=== PATIENT | male | born 1955 | race Caucasian/White ===

== ENCOUNTER 2016-09-28 12:31 | Emergency (ER) | payer MEDICARE, MEDICAID ==
[~2016-09-28] VITALS: Ht 188 cm; Wt 86.2 kg
[~2016-09-28 12:31] MED LIST: ALBU8.5H2 INHALATION; CYCL10TA9 PO; MELO-259 PO; OXYC-407 PO; PENI500T PO; SYMINH INHALATION; TAMS0.4C98 PO; TIOT18CA3 IH; TOPI-31 PO
[2016-09-28 12:35] VITALS: BP 151/87; PULSE 88; RESP 18; O2SAT 98
--- NOTE | 2016-09-28 12:53 | ED.REPORT ---
HPI- Male Date of Service Sep 28, 2016 ED Provider: Mikayla Hall MD Pt is a 61 y/o male w/ a hx of COPD presenting to the ED c/o URI-like symptoms onset 3 days ago. He c/o green productive cough, nasal congestion, fatigue, SOB. He denies fever, N/V/D. He states that this happens every year and that he normally receives major relief with a Z-pack. Nursing Notes Stated Complaint: POSS RESPIRATORY INFECTION Chief Complaint: Respiratory Complaints Nursing Notes Reviewed: Yes Allergies: Coded Allergies: No Known Allergies (Verified Allergy, Unknown, 09/28/16) Scheduled Albuterol HFA (Proair HFA) 8.5 Gm Hfa.aer.ad 2 PUFFS INHALATION Q4H Azithromycin (Zithromax (Z-Yo)) 250 Mg Tablet 250 MG PO DAILY Budesonide/Formoterol 160-4.5 mcg Inh (Symbicort 160-4.5 mcg Inh) 120 Puff Inhaler 1 PUFF INHALATION BID Meloxicam (Meloxicam) 7.5 Mg Tablet 7.5 MG PO BID Penicillin V Potassium (Penicillin V Potassium) 500 Mg Tablet 500 MG PO TID Prednisone (PredniSONE) 20 Mg Tablet 20 MG PO DAILY 20mg pills 3 today 2 09/29 and 09/30 1 10/01 and 10/02 12 10/03 and 10/04 Tamsulosin (Flomax) 0.4 Mg Capsule 0.4 MG PO DAILY Tiotropium [place] (Spiriva) 18 Mcg Cap.w.dev 18 MCG IH DAILY Topiramate (Topiramate) 100 Mg Tablet 100 MG PO BID Scheduled PRN Cyclobenzaprine (Cyclobenzaprine) 10 Mg Tablet 10 MG PO TID PRN PRN Spasm Oxycodone HCl/Acetaminophen 5-325 (Endocet 5-325) 1 Each Tablet 1-2 TABLET PO Q4H PRN PRN For Pain General Time Seen by MD: 12:51 Chief Complaint Other (URI-like) Hx Obtained From: Patient Arrived By: Walk-in Onset Occurred: 3 days ago Symptom Duration: Since onset Severity: Current: No pain currently Severity: Maximum: No pain Similar Sx Previous: Yes Past Medical History Past Medical History Anxiety COPD Hx Pneumonia Reports: Thyroid disease Past Surgical History Reports: Inguinal hernia repair Family History noncontributory Smoking History Current Every Day Smoker Social History Alcohol Use: Denies alcohol use Drug Use: THC Other Social History: Local resident Occupation single, no work or school Ambulatory Status Independent Review of Systems Constitutional: Reports: Fatigue, Denies: Chills, Fever GI: Denies: Diarrhea, Nausea, Vomiting Complete sys rev & neg: except as marked. Ears / Nose / Throat: Reports: Nasal congestion Respiratory: Reports: Prod cough, green, Shortness of breath Physical Exam Initial Vital Signs Vital Signs (First) Date Time Temp Pulse Resp B/P Pulse Ox O2 Delivery O2 Flow Rate FiO2 09/28/16 12:35 36.6 88 18 151/87 98 Room Air Initial VS: Reviewed, Vital signs normal Head / Eyes: Atraumatic, Normocephalic, PERRL ENT: Mucous membranes moist, Conjunctiva normal, No scleral icterus Cardiovascular: Regular rate & rhythm, Heart sounds normal, Intact distal pulses Abdomen / GI: Soft Extremities: Vascular intact, Neuro intact, No swelling, No tenderness Skin: Warm, Dry, No cyanosis Neurologic: Alert, Oriented, Nonfocal Psychiatric: Mood/affect normal, Behavior normal, Normal thought content General/Constitutional: Awake, Alert, No acute distress, Cooperative, Not toxic appearing Neck: Atraumatic, Supple, No meningismus, Full range of motion Soft Tissue Neck: Positive: Cervical adenopathy L... (Anterior), Cervical adenopathy R... (Anterior) Respiratory / Chest: Atraumatic, No respiratory distress, No rhonchi, No retractions, No chest tenderness, No chest wall deformity Good air movement Scattered wheezing Re-Eval/Medical Decision Re-Evaluation/Progress : Time of Eval: 13:12 Re-Evaluation/Progress Note: Pt rechecked. Informed pt of plan for treatment. Pt understands and agrees with plan for treatment. F/U and RTER warnings given. All questions addressed. Counseled Regarding: Diagnosis, Need for follow-up, When/why to return to ED Discharge & Departure Impression: Primary Impression: Acute exacerbation of chronic obstructive pulmonary disease Additional Impression: Acute exacerbation of chronic bronchitis Disposition: Home Discharge Condition All VS Reviewed: Yes Condition: Stable Additional Instructions: Thanks for letting us evaluate you today. I'm glad you came in early and don't need to be admitted today. You have the usual exacerbation of both your chronic bronchitis and COPD. You will benefit from a z pac and a brief steroid course. Please continue to use your inhalers as well. If you getting worse, we are here for you. The next time you have these symptoms, if it is early enough in the course, you might consider getting into Dr Sifuentes or an urgent care visit. I hope you get better quickly and avoid the flu!! Your prescriptions have been electronically sent to [facility] for you Referrals: Prasanna Sifuentes MD (PCP) Lulu Attestation Portions of this note were transcribed by Ethan An. I, Dr. Hall personally performed the history, physical exam and medical decision-making; I reviewed and confirmed the accuracy of the information in the transcribed note. Signed by Lulu Steen, 09/28/16 - 1312 copies to: Prasanna Sifuentes MD, Shawna L MD Sep 28, 2016 12:53 ETHAN AN Sep 28, 2016 13:06
[2016-09-28] MEDS ORDERED: PRE20 PO (13:19)
[2016-09-28] MEDS ORDERED: AZIT250T4 PO (13:19)
--- NOTE | 2016-09-28 16:09 | DRSVH ---
PROCEDURE: X-RAY CHEST ONE VIEW ([id number]) INDICATIONS: COUGH TECHNIQUE: One view of the chest was acquired. COMPARISON: [facility], CR, XR CHEST 2VW, 12/05/2015, 18:02. FINDINGS: Surgical changes and devices: None. Lungs and pleura: No pleural effusions or pneumothorax. Lungs are clear. Mediastinum: Mediastinal contours appear normal. Heart size is normal. Bones and chest wall: No suspicious bony lesions. Overlying soft tissues appear unremarkable. IMPRESSION: No acute cardiopulmonary disease process. Dictated by: Aliya Davison MD, PhD on 09/28/2016 at 16:07 Approved by: Aliya Davison MD, PhD on 09/28/2016 at 16:07
== END 2016-09-28 13:25 | disposition home or self-care (01) ==
LOC: SED 12:31
DX: J44.1 Chronic obstructive pulmonary disease with (acute) exacerbation (principal); E07.9 Disorder of thyroid, unspecified; F17.200 Nicotine dependence, unspecified, uncomplicated; Z87.01 Personal history of pneumonia (recurrent)

== ENCOUNTER 2017-03-24 12:42 | Emergency (ER) | payer MEDICARE, MEDICAID ==
[~2017-03-24] VITALS: Ht 188 cm; Wt 85.8 kg
[~2017-03-24 12:42] MED LIST changes: +AZIT250T4 PO; +PRE20 PO
[2017-03-24 12:46] VITALS: BP 124/74; PULSE 82; RESP 18; O2SAT 97
--- NOTE | 2017-03-24 13:44 | DRSVH ---
PROCEDURE: X-RAY CHEST, TWO VIEWS ([id number]) INDICATIONS: COUGH TECHNIQUE: 2 views of the chest were acquired. COMPARISON: [facility], CR, XR CHEST 1VW, 09/28/2016, 12:55. FINDINGS: Surgical changes and devices: None. Lungs and pleura: The aeration of the lungs is similar to the prior study. Mild elevation of the lef t diaphragm is noted. There is no focal consolidation, effusion, or pneumothorax. Mediastinum: Mediastinal contours are normal. Heart size is normal. There is aortic atherosclerosi s. Bones and chest wall: No suspicious bony abnormalities. Age-appropriate degenerative changes of the spine are present. Soft tissues appear unremarkable. IMPRESSION: Stable chest. No acute cardiopulmonary process is evident. Dictated by: Moises Waters M.D. on 03/24/2017 at 12:41 Approved by: Moises Waters M.D. on 03/24/2017 at 12:42
[2017-03-24 14:08] VITALS: BP 119/71; PULSE 81; RESP 22; O2SAT 97
[2017-03-24 15:20] VITALS: BP 119/71; PULSE 81; RESP 22; O2SAT 97
--- NOTE | 2017-03-24 15:32 | ED.REPORT ---
HPI-Dyspnea / Wheezing Date of Service Mar 24, 2017 ED Provider: Stu Aguilar PA-C 61-year-old male presents with chief complaint of feeling sick. He reports a history of COPD. Complains of coughing productive of brown sputum and feeling ill. Denies fever. Reports this is typically treated with a Z-Yo. Nursing Notes Stated Complaint: SICK Chief Complaint: Respiratory Distress Nursing Notes Reviewed: Yes Allergies: Coded Allergies: No Known Allergies (Verified Allergy, Unknown, 09/28/16) Scheduled Albuterol HFA (Proair HFA) 8.5 Gm Hfa.aer.ad 2 PUFFS INHALATION Q4H Azithromycin (Zithromax (Z-Yo)) 250 Mg Tablet 250 MG PO DAILY Budesonide/Formoterol 160-4.5 mcg Inh (Symbicort 160-4.5 mcg Inh) 120 Puff Inhaler 1 PUFF INHALATION BID Meloxicam (Meloxicam) 7.5 Mg Tablet 7.5 MG PO BID Penicillin V Potassium (Penicillin V Potassium) 500 Mg Tablet 500 MG PO TID Prednisone (PredniSONE) 20 Mg Tablet 20 MG PO DAILY 20mg pills 3 today 2 09/29 and 09/30 1 10/01 and 10/02 12 10/03 and 10/04 Tamsulosin (Flomax) 0.4 Mg Capsule 0.4 MG PO DAILY Tiotropium [place] (Spiriva) 18 Mcg Cap.w.dev 18 MCG IH DAILY Topiramate (Topiramate) 100 Mg Tablet 100 MG PO BID Scheduled PRN Cyclobenzaprine (Cyclobenzaprine) 10 Mg Tablet 10 MG PO TID PRN PRN Spasm Oxycodone HCl/Acetaminophen 5-325 (Endocet 5-325) 1 Each Tablet 1-2 TABLET PO Q4H PRN PRN For Pain General Time Seen by MD: 14:14 Chief Complaint Cough Past Medical History Past Medical History Anxiety COPD Hx Pneumonia Reports: Thyroid disease Past Surgical History Reports: Inguinal hernia repair Family History noncontributory Smoking History Current Every Day Smoker Social History Alcohol Use: Denies alcohol use Drug Use: THC Other Social History: Local resident Occupation single, no work or school Ambulatory Status Independent Review of Systems Review of Systems Note: Negative unless stated otherwise in history of present illness Physical Exam General: Well appearing, well developed, well nourished, no acute distress. Head: Atraumatic, normocephalic. Eyes: No scleral icterus or injection. No discharge. Vision grossly intact. ENT: Voice clear, hearing grossly intact. Respiratory: No respiratory distress, no increased work of breathing. Speaks in complete sentences. Skin: dry. Neurological: Grossly nonfocal. Psychological: alert and oriented. Speech appropriate, linear and logical. Behavior appropriate. Initial Vital Signs Vital Signs (First) Date Time Temp Pulse Resp B/P Pulse Ox O2 Delivery O2 Flow Rate FiO2 03/24/17 12:46 37.1 82 18 124/74 97 Room Air Normal Discharge & Departure Departure Notes I met briefly with this patient and conducted a brief history and physical as documented above. I told him I had other patients to attend to but that I would be speaking with him in more depth shortly. I reviewed chest x-ray results which are negative for consolidation. I did not auscultate his lungs personally by his nurse reports scattered rhonchi, negative wheezes. His vital signs are normal. As I as repairing to meet with the patient again, he informed registration wished to leave, which was related to his nurse who informed me. She spoke with the patient and informed him I would be seeing him within minutes, but he reported that he had to leave and departed. Based on my limited exam and review the chest x-ray I have minimal concern for pneumonia, COPD exacerbation or respiratory distress at this time. I believe he is oriented and able to make this decision for himself. Impression: Primary Impression: Cough Disposition: AGAINST MEDICAL ADVICE Discharge Condition All VS Reviewed: Yes Condition: Improved Referrals: Prasanna Sifuentes MD (PCP) EDSupervising Provider for APC: Sanjay Chand MD, Seth PA-C Mar 24, 2017 15:32
== END 2017-03-24 15:22 | disposition left against medical advice (07) ==
LOC: SED 12:42
DX: R05 Cough (principal); J44.9 Chronic obstructive pulmonary disease, unspecified; E07.9 Disorder of thyroid, unspecified; F17.200 Nicotine dependence, unspecified, uncomplicated